=== PATIENT | male | born 1995 | race Caucasian/White ===

== ENCOUNTER 2019-01-07 07:28 | Emergency (ER) | payer SELFPAY ==
[2019-01-07 08:39] LABS: CHLORIDE,CL 98 mmol/L (98-107); SODIUM,NA 139 mmol/L (136-148)
[2019-01-07] MEDS ORDERED: Iopamidol 755 MG/ML 500 ML Multipack Bottle IVPUSH STA ×2 (09:12→11:07)
--- NOTE | 2019-01-07 10:31 | CT ---
INDICATION: NECK PAIN. PT STATES USED METH LAST NIGHT, BLACKED OUT, AND UNSURE OF WHAT HAPPENED. NOW HAVING NECK PAIN. TECHNIQUE: CT of the neck with 80 cc Omnipaque 370 IV iodinated contrast agent. Coronal and sagittal reconstructions. COMPARISON: None FINDINGS: Extensive emphysema involving the superficial and deep spaces of the neck involving the submandibular, mesenteric, carotid spaces and along the bilateral sternocleidomastoid muscles. There is moderate retropharyngeal emphysema extending inferiorly along the danger space into the mediastinum. Foci of gas are also noted along the right paraspinal musculature and in the epidural spaces of the spinal canal. There is extension anteriorly and inferiorly into the bilateral axillary and substernal spaces. There is a small left apical pneumothorax. No drainable fluid collections. No lymphadenopathy. Scattered normal appearing lymph nodes are present throughout the neck bilaterally. All the major vascular structures opacify normally with contrast material. The salivary glands and thyroid gland are normal in appearance. Mild mucosal thickening in the maxillary sinuses. Cerumen in the right external auditory canal. The oral cavity, pharyngeal and laryngeal spaces are normal in appearance. No periapical lucencies surrounding the visualized teeth. No lytic or blastic process within the imaged osseous structures. The paraspinous muscles are symmetric and normal in appearance. Visualized portions of the brain are within normal limits. The orbital contents are normal. Findings discussed with Dr. Ramirez at 10:18 a.m. IMPRESSION: 1. Extensive emphysema involving the superficial and deep spaces of the neck involving the submandibular, mesenteric, carotid spaces and along the bilateral sternocleidomastoid muscles. There is moderate retropharyngeal emphysema extending inferiorly along the danger space into the mediastinum (pneumomediastinum). Gas is also noted along the right paraspinal musculature and in epidural spaces of the spinal canal. There is also involvement of the bilateral axillary and substernal spaces. Correlation for barotrauma and/or cutaneous route of entry is recommended. If none identified, consider oral cavity or esophageal route of entry. 2. There is a small left apical pneumothorax. Consider dedicated CT chest imaging. 3. No evidence of vascular injury. Please note that all CT scans at this facility use dose modulation, iterative reconstruction, and/or weight-based dosing when appropriate to reduce radiation dose to as low as reasonably achievable. Dictated by Jay Washington MD @ Jan 07 2019 10:09AM Signed by Dr. Jay Washington @ Jan 07 2019 10:29AM
--- NOTE | 2019-01-07 10:42 | EDM.PDOC ---
ED HPI GENERAL MEDICAL PROBLEM - General Chief Complaint: Neck Problem Stated Complaint: RIGHT SIDE OF NECK IS SWOLLEN Time Seen by Provider: 01/07/19 10:41 Source of Information: Reports: Patient - History of Present Illness INITIAL COMMENTS - FREE TEXT/NARRATIVE: HISTORY AND PHYSICAL: History of present illness: [Patient presents with complaint of neck swelling, he states he had snorted amphetamine last night, he does not recall what he had did after this had somewhat of a blackout experience However this morning he complains of neck swelling and mild discomfort is in no apparent distress no fever nausea vomiting chills sweats no shortness breath headache dizziness palpitation no bowel or urine symptoms ] Review of systems: As per history of present illness and below otherwise all systems reviewed and negative. Past medical history: As per history of present illness and as reviewed below otherwise noncontributory. Surgical history: As per history of present illness and as reviewed below otherwise noncontributory. Social history: No reported history of drug or alcohol abuse. Family history: As per history of present illness and as reviewed below otherwise noncontributory. Physical exam: HEENT: Atraumatic, normocephalic, pupils reactive, negative for conjunctival pallor or scleral icterus, mucous membranes moist, throat clear, neck supple, nontender, trachea midline. Crepitus felt on right anterior neck on exam Lungs: Clear to auscultation, breath sounds equal bilaterally, chest nontender. Heart: S1S2, regular, negative for clicks, rubs, or JVD. Abdomen: Soft, nondistended, nontender. Negative for masses or hepatosplenomegaly. Negative for costovertebral tenderness. Pelvis: Stable nontender. Genitourinary: Deferred. Rectal: Deferred. Extremities: Atraumatic, negative for cords or calf pain. Neurovascular unremarkable. Neuro: Awake, alert, oriented. Cranial nerves II through XII unremarkable. Cerebellum unremarkable. Motor and sensory unremarkable throughout. Exam nonfocal. Diagnostics: [CBC CMP UA] CT neck soft tissues CT chest with contra Therapeutics: Dr. Mancera as consulted-eval and treatment Dr. Mancera is arranging transferSee his detailed note Impression: [Pneumomediastinum Possible left pneumo] Definitive disposition and diagnosis as appropriate pending reevaluation and review of above. Neck Pain Score (Numeric/FACES): 8 - Related Data Allergies Allergy/AdvReac Type Severity Reaction Status Date / Time No Known Allergies Allergy Verified 01/07/19 07:47 Home Meds: Home Meds . [No Known Home Meds] 02/13/14 [History] Past Medical History - Past Health History Medical/Surgical History: Denies Medical/Surgical History Cardiovascular History: Reports: Hypertension Social & Family History - Family History Family Medical History: Noncontributory - Tobacco Use Smoking Status *Q: Current Every Day Smoker Years of Tobacco use: 6 Packs/Tins Daily: 1 - Recreational Drug Use Recreational Drug Use: Yes Drug Use in Last 12 Months: Yes Recreational Drug Type: Reports: Marijuana/Hashish, Methamphetamine ED ROS GENERAL - Review of Systems Review Of Systems: See Below ED EXAM, GENERAL - Physical Exam Exam: See Below Course - Vital Signs Last Recorded V/S: Last Vital Signs Temp 97.0 F 01/07/19 07:45 Pulse 114 H 01/07/19 07:45 Resp 18 01/07/19 07:45 BP 161/141 H 01/07/19 07:45 Pulse Ox 100 01/07/19 07:45 - Orders/Labs/Meds Orders: Active Orders 24 hr Category Date Time Status Notify Provider Consults [RC] ASDIRECTED Care 01/07/19 10:39 Active Consult to Physician [CONS] Stat Cons 01/07/19 10:38 Active Chest w Cont [CT] Stat Exams 01/07/19 10:21 Taken DRUG SCREEN, URINE [URCHEM] Stat Lab 01/07/19 10:57 Ordered UA RFX INOCENTE AND CULT IF INDIC [URIN] Stat Lab 01/07/19 10:57 Ordered Labs: Laboratory Tests 01/07/19 01/07/19 Range/Units 07:55 07:55 WBC 15.51 H (4.0-11.0) K/uL RBC 5.62 (4.50-5.90) M/uL Hgb 17.5 H (13.0-17.0) g/dL Hct 47.8 (38.0-50.0) % MCV 85.1 (80.0-98.0) fL MCH 31.1 (27.0-32.0) pg MCHC 36.6 (31.0-37.0) g/dL RDW Std Deviation 37.4 (28.0-62.0) fl RDW Coeff of Yasmeen 12 (11.0-15.0) % Plt Count 241 (150-400) K/uL MPV 9.10 (7.40-12.00) fL Neut % (Auto) 82.0 H (48.0-80.0) % Lymph % (Auto) 10.6 L (16.0-40.0) % [place] % (Auto) 7.2 (0.0-15.0) % Eos % (Auto) 0.1 (0.0-7.0) % Baso % (Auto) 0.1 (0.0-1.5) % Neut # (Auto) 12.7 H (1.4-5.7) K/uL Lymph # (Auto) 1.7 (0.6-2.4) K/uL [place] # (Auto) 1.1 H (0.0-0.8) K/uL Eos # (Auto) 0.0 (0.0-0.7) K/uL Baso # (Auto) 0.0 (0.0-0.1) K/uL Nucleated RBC % 0.0 /100WBC Nucleated RBCs # 0 K/uL Sodium 139 (136-148) mmol/L Potassium 3.4 L (3.5-5.1) mmol/L Chloride 98 (98-107) mmol/L Carbon Dioxide 23.9 (21.0-32.0) mmol/L BUN 10 (7.0-18.0) mg/dL Creatinine 1.1 (0.8-1.3) mg/dL Est Cr Clr Drug Dosing 113.66 mL/min Estimated GFR (MDRD) > 60.0 ml/min Glucose 125 H (74-106) mg/dL Calcium 9.9 (8.5-10.1) mg/dL Total Bilirubin 2.2 H (0.2-1.0) mg/dL AST 11 L (15-37) IU/L ALT 20 (14-63) IU/L Alkaline Phosphatase 92 (46-116) U/L Total Protein 7.9 (6.4-8.2) g/dL Albumin 4.6 (3.4-5.0) g/dL Globulin 3.3 (2.6-4.0) g/dL Albumin/Globulin Ratio 1.4 (0.9-1.6) Meds: Medications Discontinued Medications Generic Name Dose Route Start Last Admin Trade Name Anamika PRN Reason Stop Dose Admin Iopamidol 80 ml 01/07/19 09:12 01/07/19 09:13 Isovue Multipack-370 (76%) IVPUSH 01/07/19 09:13 80 ml ONETIME STA Administration Iopamidol 75 ml 01/07/19 11:07 01/07/19 11:08 Isovue Multipack-370 (76%) IVPUSH 01/07/19 11:08 75 ml ONETIME STA Administration Departure - Departure Time of Disposition: 11:49 Disposition: Still A Patient 30 Condition: Fair Clinical Impression: Pneumomediastinum, Pneumothorax, left - Discharge Information Referrals: PCP,None [Primary Care Provider] - Forms: ED Department Discharge - My Orders Last 24 Hours: My Active Orders 01/07/19 10:21 Chest w Cont [CT] Stat 01/07/19 10:38 Consult to Physician [CONS] Stat 01/07/19 10:39 Notify Provider Consults [RC] ASDIRECTED 01/07/19 10:57 DRUG SCREEN, URINE [URCHEM] Stat UA RFX INOCENTE AND CULT IF INDIC [URIN] Stat - Assessment/Plan Last 24 Hours: My Active Orders 01/07/19 10:21 Chest w Cont [CT] Stat 01/07/19 10:38 Consult to Physician [CONS] Stat 01/07/19 10:39 Notify Provider Consults [RC] ASDIRECTED 01/07/19 10:57 DRUG SCREEN, URINE [URCHEM] Stat UA RFX INOCENTE AND CULT IF INDIC [URIN] Stat
--- NOTE | 2019-01-07 12:24 | CT ---
INDICATION: Neck pain. Used meth last night. Blacked out. TECHNIQUE: CT chest was acquired with 75 cc Isovue 370 IV contrast. COMPARISON: None. FINDINGS: Lungs and pleural: Small 1 cm nodular infiltrate is seen in the anterior aspect of the left lower lobe on series 202, image 69. No other nodules or infiltrates. No pleural effusions. Tiny left apical pneumothorax is present. Heart and vasculature: Heart size is normal. Thoracic aorta and pulmonary artery are normal in caliber. Lymph nodes/mediastinum: There is extensive mediastinal air which tracks into the soft tissues of the neck and chest wall. No lymphadenopathy or mass. Esophagus is normal. Trachea is normal. Thyroid gland is normal. Chest wall: Bilateral subcutaneous air. No masses or fluid collections. Upper abdomen: Normal. Bones: Unremarkable. No fracture or other osseous abnormality. IMPRESSION: 1. Extensive mediastinal and subcutaneous air of uncertain etiology. No abnormality of the trachea, esophagus, osseous structures, or other finding to explain this air. 2. Tiny left apical pneumothorax. 3. Single small 1 cm nodular infiltrate in the left lower lobe. This could represent a pulmonary contusion or pneumonitis. 4. Remainder of the exam is normal. Please note that all CT scans at this facility use dose modulation, iterative reconstruction, and/or weight-based dosing when appropriate to reduce radiation dose to as low as reasonably achievable. Dictated by Luis Fernando Alaniz MD @ Jan 07 2019 12:06PM Signed by Dr. Luis Fernando Alaniz @ Jan 07 2019 12:23PM
--- NOTE | 2019-01-07 14:35 | HP ---
DATE OF : 1995 PRIMARY CARE PHYSICIAN: None PCP REASON FOR CONSULTATION: Subcu emphysema, pneumomediastinum. HISTORY OF PRESENT ILLNESS: The patient is a 23-year-old gentleman seen in the emergency room for swollen neck. The patient remarked that he was using meth last night and then he blacked out. He does not know what happened and this morning, he had severe neck pain and sought help in the emergency room and workup including CAT scan of the neck soft tissue suggests severe subcu emphysema with moderate retropharyngeal emphysema extending inferiorly into the pneumomediastinum. Surgery was then consulted. The patient denied prior episode and currently the patient denies shortness of breath, denies chest pain, and the patient took some sip of water before coming to the emergency room, and he denies any chest pain. Denies emesis and denies any bloody emesis, and the patient did not have a bowel movement. PAST MEDICAL HISTORY: Denied diabetic, NH, CVA, hypertension. PAST SURGICAL HISTORY: None. ALLERGIES: Please refer to nursing for details. MEDICATIONS: Please refer to nursing for details. FAMILY HISTORY: Noncontributory. SOCIAL HISTORY: The patient used chewing tobacco in the past, currently is day-to-day smoker and also occasionally doing marijuana as well as meth use. PHYSICAL EXAMINATION: GENERAL: A gentleman, very anxious, in no acute distress. His voice is high pitched, and he remarked that this is not his usual voice, and his voice is high - pitched. HEENT: Normocephalic and atraumatic and extensive swelling on the neck and on the face and mild tenderness upon palpation. Trachea is midline. LUNGS: Distant breath sounds on both sides, equal. CHEST: There is no obvious tenderness in the rib cage. ABDOMEN: Soft and benign. DIAGNOSTIC DATA: CAT scan report of the neck soft tissue suggests extensive emphysema involving superficial and deep space of the neck involving some mandibular, mesenteric, carotid space and also pneumomediastinum and read as a barotrauma. Small left apical pneumo. No evidence of vascular injury. The CT of chest was done. The report is not available at the time of dictation. My own reading, I do not see any rib fracture, and the lung is almost 99.99% up both on the left and the right. IMPRESSION: Barotrauma and possible esophageal or oral cavity rough entry. I talked with Dr. Lugo of [facility], and he accepted the transfer. Plan also discussed with the patient and the patient agrees for the transfer. The patient will go to higher level of care because of the pneumomediastinum and extensive subcu emphysema. As always thank you for the kind referral. SEBASTIÁN / DARLIN /[id number] SABI
== END 2019-01-07 12:18 ==
LOC: MW.ED 07:28
DX: J93.9 Pneumothorax, unspecified (principal); J98.2 Interstitial emphysema; I10 Essential (primary) hypertension; F17.210 Nicotine dependence, cigarettes, uncomplicated
CPT/HCPCS: 36415; 70491; 71260; 80053; 80305; 81003; 85025; 93005; 99285; Q9967

== ENCOUNTER 2019-03-13 00:13 | Emergency (ER) | payer OTHER ==
[2019-03-13] MEDS ORDERED: Bacitracin Oint 1 GM U/D Packet TOP ONE (00:21)
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
[2019-03-13] MEDS ORDERED: Ketorolac 60 MG/2 ML SDV IM ONE (01:11)
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
== END 2019-03-13 02:21 | disposition home or self-care (01) ==
LOC: MW.ED 00:13
DX: S70.01XA Contusion of right hip, initial encounter (principal); S80.12XA Contusion of left lower leg, initial encounter; I10 Essential (primary) hypertension; F17.210 Nicotine dependence, cigarettes, uncomplicated; V69.40XA Driver of heavy transport vehicle injured in collision with unspecified motor vehicles in traffic accident, initial encounter; Y92.410 Unspecified street and highway as the place of occurrence of the external cause
CPT/HCPCS: 70450; 71046; 72040; 73502; 73590; 96372; 99284; J1885; 99283

== ENCOUNTER 2019-10-29 10:36 | Emergency (ER) | payer OTHER ==
[2019-10-29] MEDS ORDERED: Acetaminophen 500 MG Tab PO ONE (10:51)
[2019-10-29] MEDS ORDERED: Ibuprofen 400 MG Tab PO ONE (10:51)
--- NOTE | 2019-10-29 11:07 | EDM.PDOC ---
ED HPI GENERAL MEDICAL PROBLEM - General Chief Complaint: Upper Extremity Injury/Pain Stated Complaint: INJURY RT WRIST Time Seen by Provider: 10/29/19 10:38 Source of Information: Reports: Patient History Limitations: Reports: No Limitations - History of Present Illness INITIAL COMMENTS - FREE TEXT/NARRATIVE: 24-year-old male with no past medical history presenting with a right wrist injury. Yesterday, the patient was at work when he slipped on a wet surface and fell, with his arms extended out behind him. He presents emergency department complaining of pain to the dorsal center of the right wrist joint. Denies any other complaints or injuries. Denies numbness or weakness in the right upper extremity. No self treatment prior to arrival, no other complaints. Right Wrist Pain Score (Numeric/FACES): 6 - Related Data Allergies Allergy/AdvReac Type Severity Reaction Status Date / Time No Known Allergies Allergy Verified 10/29/19 10:51 Home Meds: Home Meds . [No Known Home Meds] 02/13/14 [History] Past Medical History - Past Health History Medical/Surgical History: Denies Medical/Surgical History Cardiovascular History: Reports: Hypertension - Infectious Disease History Infectious Disease History: Reports: Chicken Pox Social & Family History - Family History Family Medical History: Noncontributory - Tobacco Use Smoking Status *Q: Current Every Day Smoker Years of Tobacco use: 7 Packs/Tins Daily: 1 - Caffeine Use Caffeine Use: Reports: Coffee - Recreational Drug Use Recreational Drug Use: Yes Recreational Drug Type: Reports: Marijuana/Hashish Review of Systems - Review of Systems Review Of Systems: See Below Musculoskeletal: Reports: Joint Pain. Denies: Shoulder Pain, Hand Pain, Joint Swelling Neurological: Denies: Numbness, Paresthesia, Weakness ED EXAM, GENERAL - Physical Exam Exam: See Below Free Text/Narrative:: Vital signs reviewed. Nursing notes reviewed. Constitutional: Awake, alert, non-distressed. Head: Normocephalic, atraumatic. Eyes: EOMI, conjunctiva normal, no discharge, no scleral icterus. Ears, Nose, Throat: External ears and nose normal, moist oral mucosa. Cardiovascular: 2+ right radial pulse, capillary refill less than 2 seconds. Pulmonary: normal work of breathing, no accessory muscle use. Abdomen/GI: Soft, nontender, nondistended, no guarding or rigidity, no masses. Musculoskeletal: No deformities. Normal range of motion of the right wrist and elbow. No tenderness to palpation of the right anatomic snuffbox. Integumentary: Appropriate color for ethnicity, warm, dry, no pallor or jaundice, no rash. Neurologic: Alert, answering questions appropriately, normal speech, no facial droop, moving all extremities well. Sensation intact to light touch in the right upper extremity. Able to extend right fingers, able to oppose right thumb and fifth finger, able to abduct all fingers of the right hand. Psychiatric: Appropriate mood and affect, normal thought process. Peripheral Pulses: 2+: Radial (R) ED TRAUMA EXTREMITY PROCEDURES - Splinting Right Upper Extremity Splint Site: Right wrist Pre-Procedure NV Status: Normal Post-Procedure NV Status: Normal Splint Material: Velcro Splint Design: Volar Applied & Form Fitted By: Provider Provider Post-Splint Application NV Check: NV Status Normal Complications: No Course - Vital Signs Text/Narrative:: 24-year-old male with a wrist injury. Patient [hemodynamically stable, afebrile], well-appearing, looks nontoxic. Differential diagnosis includes but is not limited to: fracture, dislocation, soft tissue injury, vascular injury, nerve injury, TFCC injury, and many others. Neurovascularly intact in the right upper extremity. Right wrist x-ray series demonstrated questionable lucent lines within the base of the third and fourth metacarpals, concerning for possible fracture. Decided to obtain CT imaging of the right wrist. Wrist CT was unremarkable, no evidence of bony injury. No pain at DRUJ to suggest TFCC injury. Presentation is consistent with a right wrist sprain. Patient will be placed in a removable right wrist splint. Instructions given for cold therapy, [id number] Tylenol Motrin, primary care follow-up. Plan: Patient is stable to discharge home with outpatient primary care follow- up. Strict emergency department return precautions were provided, patient indicated understanding. All questions were answered prior to departure. Discharged in good condition. Last Recorded V/S: Last Vital Signs Temp 36.1 C 10/29/19 10:49 Pulse 88 10/29/19 10:49 Resp 17 10/29/19 10:49 BP 184/112 H 10/29/19 10:49 Pulse Ox 96 10/29/19 10:49 - Orders/Labs/Meds Orders: Active Orders 24 hr Category Date Time Status Abdomen Ltd [US] Stat Exams 10/29/19 11:41 Stop Req Sodium Chloride 0.9% [Normal Saline] Med 10/29/19 11:41 Active 10 ml IV ASDIRECTED PRN Sodium Chloride 0.9% [Saline Flush] Med 10/29/19 11:41 Active 10 ml FLUSH ASDIRECTED PRN Sodium Chloride 0.9% [Saline Flush] Med 10/29/19 11:41 Active 2.5 ml FLUSH ASDIRECTED PRN DME for Discharge [COMM] Stat Oth 10/29/19 12:04 Ordered Medication Orders Sodium Chloride (Saline Flush) 10 ml FLUSH ASDIRECTED PRN PRN Reason: Keep Vein Open Sodium Chloride (Saline Flush) 2.5 ml FLUSH ASDIRECTED PRN PRN Reason: Keep Vein Open Sodium Chloride (Normal Saline) 10 ml IV ASDIRECTED PRN PRN Reason: IV Use Meds: Medications Generic Name Dose Route Start Last Admin Trade Name Freq PRN Reason Stop Dose Admin Sodium Chloride 10 ml 10/29/19 11:41 Saline Flush FLUSH ASDIRECTED PRN Keep Vein Open Sodium Chloride 2.5 ml 10/29/19 11:41 Saline Flush FLUSH ASDIRECTED PRN Keep Vein Open Sodium Chloride 10 ml 10/29/19 11:41 Normal Saline IV ASDIRECTED PRN IV Use Discontinued Medications Generic Name Dose Route Start Last Admin Trade Name Freq PRN Reason Stop Dose Admin Acetaminophen 1,000 mg 10/29/19 10:51 10/29/19 10:59 Tylenol Extra Strength PO 10/29/19 10:52 1,000 mg ONETIME ONE Administration Al Hydroxide/Mg Hydroxide 15 0 ml 10/29/19 11:41 10/29/19 11:54 ml/ Lidocaine HCl 5 ml PO 10/29/19 11:42 Not Given ONETIME ONE Lactated Ringer's 1,000 mls @ 1,000 mls/hr 10/29/19 11:41 10/29/19 11:54 Ringers, Lactated IV 10/29/19 12:40 Not Given .BOLUS ONE Ibuprofen 400 mg 10/29/19 10:51 10/29/19 10:59 Motrin PO 10/29/19 10:52 400 mg ONETIME ONE Administration Ondansetron HCl 4 mg 10/29/19 11:41 10/29/19 11:54 Zofran IVPUSH 10/29/19 11:42 Not Given ONETIME ONE Departure - Departure Time of Disposition: 12:03 Disposition: Home, Self-Care 01 Condition: Good Clinical Impression: Right wrist sprain Qualifiers: Encounter type: initial encounter Qualified Code(s): S63.501A - Unspecified sprain of right wrist, initial encounter - Discharge Information *PRESCRIPTION DRUG MONITORING PROGRAM REVIEWED*: Not Applicable *COPY OF PRESCRIPTION DRUG MONITORING REPORT IN PATIENT SOLO: Not Applicable Instructions: How to Use Cold Therapy, [id number], Wrist Sprain, Adult Referrals: [facility] - Family Practice [Provider Group] - 1 Week (As needed) Forms: ED Department Discharge Additional Instructions: Thank you for choosing the [facility] emergency department in [place] for your medical needs today. It was a pleasure caring for you. You were seen in the emergency department for a wrist injury. Your x-rays and CT scans did not demonstrate a broken bone or dislocation. I think you have a sprained right wrist. You were given a removable wrist brace. I recommend [id number] extra strength acetaminophen (1000 mg every 6 ho urs) and ibuprofen (400 mg every 6 hours) to help treat your pain. You can also apply ice packs every hour for 10 to 15 minutes at a time to help reduce inflammation and swelling. You should follow-up with our family medicine clinic in the next week if you are not feeling better. Please return the emergency department immediately if your symptoms worsen or if you feel worse. The following information is given to patients seen in the emergency department who are being discharged. This information is to outline your options for follow-up care. We provide all patients seen in our emergency department with a follow-up referral. The need for follow-up, as well as the timing and circumstances, are variable depending upon the specifics of your emergency department visit. If you don't have a primary care physician on staff, we will provide you with a referral. We always advise you to contact your personal physician following an emergency department visit to inform them of the circumstance of the visit and for follow-up with them and/or the need for any referrals to a consulting specialist. The emergency department will also refer you to a specialist when appropriate. This referral assures that you have the opportunity for follow-up care with a specialist. All of these measure are taken in an effort to provide you with optimal care, which includes your follow-up. Under all circumstances we always encourage you to contact your private physician who remains a resource for coordinating your care. When calling for follow-up care, please make the office aware that this follow-up is from your recent emergency room visit. If for any reason you are refused follow-up, please contact the [facility] Emergency Department at and asked to speak to the emergency department charge nurse. If you do not have a primary care physician that is caring for you, you can contact these clinics below to set up an appointment to establish care: [facility] - Primary [facility] [address] [place] [id number] [facility] [address] [place] [id number] Sepsis Event Note (ED) - Evaluation Sepsis Screening Result: No Definite Risk - Focused Exam Vital Signs: Vital Signs Temp Pulse Resp BP Pulse Ox 10/29/19 10:49 36.1 C 88 17 184/112 H 96 - My Orders Last 24 Hours: My Active Orders 10/29/19 11:41 Abdomen Ltd [US] Stat Sodium Chloride 0.9% [Normal Saline] 10 ml IV ASDIRECTED PRN Sodium Chloride 0.9% [Saline Flush] 10 ml FLUSH ASDIRECTED PRN Sodium Chloride 0.9% [Saline Flush] 2.5 ml FLUSH ASDIRECTED PRN 10/29/19 12:04 DME for Discharge [COMM] Stat - Assessment/Plan Last 24 Hours: My Active Orders 10/29/19 11:41 Abdomen Ltd [US] Stat Sodium Chloride 0.9% [Normal Saline] 10 ml IV ASDIRECTED PRN Sodium Chloride 0.9% [Saline Flush] 10 ml FLUSH ASDIRECTED PRN Sodium Chloride 0.9% [Saline Flush] 2.5 ml FLUSH ASDIRECTED PRN 10/29/19 12:04 DME for Discharge [COMM] Stat
--- NOTE | 2019-10-29 11:21 | CR ---
Right wrist: 3 views of the right wrist are obtained. Comparison: No previous wrist exam. Joint spaces are maintained. Lucent line is noted at the base of the third and fourth metacarpals. No definite cortical irregularity is seen to indicate definite fracture but nondisplaced fracture is still difficult to completely exclude. No additional abnormality is seen. Impression: 1. Lucent lines without definite cortical irregularity within the base of the third and fourth metacarpals. Difficult to completely exclude nondisplaced fractures. Follow-up study in 10-14 days would confirm or rule out if clinically needed. 2. No additional abnormality is seen. Diagnostic code #3 Study was dictated in MDT
[2019-10-29] MEDS ORDERED: Lactated Ringers 1,000 ML IV ONE (11:41)
[2019-10-29] MEDS ORDERED: Alum Hydrox/Mag Hydrox/Simeth 15 ML, Lidocaine 2% 5 ML PO ONE ×2 (11:41)
[2019-10-29] MEDS ORDERED: Sodium Chloride 0.9% 10 ML SDV IV PRN (11:41)
[2019-10-29] MEDS ORDERED: Ondansetron 4 MG/2 ML SDV IVPUSH ONE (11:41)
[2019-10-29] MEDS ORDERED: Sodium Chloride 0.9% 2.5 ML Syringe FLUSH PRN (11:41)
[2019-10-29] MEDS ORDERED: Sodium Chloride 0.9% 10 ML Syringe FLUSH PRN (11:41)
--- NOTE | 2019-10-29 11:54 | CT ---
CT right wrist Technique: Multiple axial sections through the right wrist were obtained. Reconstructed coronal and sagittal images are obtained. Comparison: Previous right wrist plain film exam performed earlier on the same day (10:59 AM). Findings: No fracture is identified within the base of the third or fourth metacarpal as questioned on recent plain film study. No fracture is seen within the right wrist. No abnormal soft tissue calcifications or soft tissue foreign body is seen. No fluid collections are appreciated within the soft tissues. Impression: 1. No abnormality is appreciated on CT study of the right wrist. Previously questioned fractures are not confirmed on this exam. Diagnostic code #1 Study was dictated in MDT
== END 2019-10-29 12:12 | disposition home or self-care (01) ==
LOC: MW.ED 10:36
DX: S63.501A Unspecified sprain of right wrist, initial encounter (principal); I10 Essential (primary) hypertension; F17.210 Nicotine dependence, cigarettes, uncomplicated; W01.0XXA Fall on same level from slipping, tripping and stumbling without subsequent striking against object, initial encounter; Y99.0 Civilian activity done for income or pay
CPT/HCPCS: 73110; 73200; 99284; A9270; 99283